=== PATIENT | male | born 1970 | race Caucasian/White ===

== ENCOUNTER → 2016-10-06 | Day surgery (SDC) | payer MEDICARE, OTHER ==
[~2016-10-06] MED LIST: ABILIFY5 MG PO; CONCERTA54 M1 PO; LITHIUM CARBON300 M1 PO; LOTREL 10-20 MG1 CAP PO; LOTREL 5/101 CAP PO; NEXIUM PO; PRISTIQ100 MG PO; SINGULAIR PO; STRIBILD TABLE1 EACH PO; TREXIMET 85-501 EACH; WELLBUTRIN XL150 M2 PO
--- NOTE | ~2016-10-06 | ECT ---
Unit #: [id number] #: [id number] Patient: JACE GRULLON [id number] [place] [address] [id number] O MR#: [id number] NAME: JACE GRULLON ROOM: Age: 45 Sex: M Admission Date: 10/06/2016 : 1970 Discharge Date: Attending Physician: Gallo Orozco M.D. Primary Care Physician: Alex Thomas M.D. ECT NOTE DATE OF TREATMENT 10/06/2016 TREATMENT NUMBER 1 TREATMENT MODALITY Unilateral ECT ANESTHESIA Glycopyrrolate: 0.2 mg Brevital: 150 mg Succinylcholine: 120 mg TREATMENT PARAMETERS Charge: 60 millicoulombs Pulse Width: 1.0 milliseconds Frequency: 30 Hertz Duration: 1.25 seconds Current: 800 milliamps TREATMENT DELIVERED Energy: 13.3 joules Impedance: 271 ohms Charge: 60 millicoulombs SEIZURE MEASURES OMS: 21 seconds EE seconds COMPLICATIONS None. SUMMARY The patient had a good seizure with his OMS and EEG measures. Depression seems to have returned and has been pretty severe for the last month. Psychomotor retardation, poor focus and concentration, loss of interest in activities, more social isolation, feeling of guilt. No suicidal or homicidal ideation is noted. I will continue his ECT treatments on Tuesday. DIFFERENTIAL DIAGNOSES AXIS I: F33.2. AXIS II: Deferred. AXIS III: Nothing acute. Unit #: [id number] #: [id number] Patient: JACE GRULLON Dictated by... Sera Magaña/kezia TD: 10/06/2016 22:32 JOB #: [id number] ECT NOTE X Gallo Orozco MD <ELECTRONICALLY SIGNED> 03/15/17 1702 X ECT
== END | disposition home or self-care (01) ==
LOC: CSUR 07:11
DX: F33.2 Major depressive disorder, recurrent severe without psychotic features (principal); K21.9 Gastro-esophageal reflux disease without esophagitis; I10 Essential (primary) hypertension; Z87.19 Personal history of other diseases of the digestive system; Z79.899 Other long term (current) drug therapy; Z86.69 Personal history of other diseases of the nervous system and sense organs
CPT/HCPCS: 90870; J0330; J1885

== ENCOUNTER → 2016-10-13 | Day surgery (SDC) | payer MEDICARE, OTHER ==
--- NOTE | ~2016-10-13 | ECT ---
Unit #: [id number] #: [id number] Patient: JACE GRULLON [id number] [address] [address] [id number] O MR#: [id number] NAME: JACE GRULLON ROOM: Age: 45 Sex: M Admission Date: 10/13/2016 : 1970 Discharge Date: Attending Physician: Gallo Orozco M.D. Primary Care Physician: Alex Thomas M.D. ECT NOTE DATE OF TREATMENT 10/13/2016 TREATMENT NUMBER Two. TREATMENT MODALITY Unilateral ECT. ANESTHESIA Glycopyrrolate: 0.2 mg. Brevital: 150 mg. Succinylcholine: 120 mg TREATMENT PARAMETERS Charge: 240 millicoulombs Pulse Width: 1.0 milliseconds Frequency: 30 Hertz Duration: 5 seconds Current: 800 milliamps TREATMENT DELIVERED Energy: 49.7 joules Impedance: 255 ohms Charge: 240 millicoulombs SEIZURE MEASURES OMS: 20 seconds EE seconds COMPLICATIONS None. SUMMARY The patient had a good seizure with OMS and EEG measures. No real change noted from his first ECT last week. He wants to wait and see how he does with this maintenance treatment today before we reschedule another ECT and we will just continue to follow as an outpatient. DIFFERENTIAL DIAGNOSES AXIS I: F33.2. AXIS II: Deferred. Unit #: [id number] #: [id number] Patient: JACE GRULLON AXIS III: Nothing acute. Dictated by... Gallo Orozco M.D. SAULO/pauline TD: 10/13/2016 12:12 JOB #: [id number] ECT NOTE Page 1 of 1 X Gallo Orozco MD <ELECTRONICALLY SIGNED> 03/15/17 1702 X ECT
== END | disposition home or self-care (01) ==
LOC: CSUR 06:37
DX: F33.2 Major depressive disorder, recurrent severe without psychotic features (principal); K21.9 Gastro-esophageal reflux disease without esophagitis; E66.9 Obesity, unspecified; Z68.30 Body mass index [BMI] 30.0-30.9, adult; I10 Essential (primary) hypertension; B20 Human immunodeficiency virus [HIV] disease; Z79.899 Other long term (current) drug therapy; J30.9 Allergic rhinitis, unspecified; Z98.890 Other specified postprocedural states
CPT/HCPCS: 90870; J0330; J1885

== ENCOUNTER → 2016-10-20 | Day surgery (SDC) | payer MEDICARE, OTHER ==
--- NOTE | ~2016-10-20 | ECT ---
Unit #: [id number] #: [id number] Patient: JACE GRULLON [id number] [address] [address] [id number] O MR#: [id number] NAME: JACE GRULLON ROOM: Age: 45 Sex: M Admission Date: 10/20/2016 : 1970 Discharge Date: Attending Physician: Gallo Orozco M.D. Referring Physician: Gallo Orozco M.D. Primary Care Physician: Alex Thomas M.D. ECT NOTE DATE OF TREATMENT 10/20/2016 TREATMENT NUMBER 3, maintenance TREATMENT MODALITY Unilateral ECT ANESTHESIA Glycopyrrolate: 0.2 mg Brevital: 150 mg Succinylcholine: 120 mg TREATMENT PARAMETERS Charge: 264 millicoulombs Pulse Width: 1.0 milliseconds Frequency: 30 Hertz Duration: 5.5 seconds Current: 800 milliamps TREATMENT DELIVERED Energy: 58.3 joules Impedance: 266 ohms Charge: 264 millicoulombs SEIZURES MEASURES OMS: 19 seconds EE seconds COMPLICATIONS None. SUMMARY The patient had a good seizure with his OMS and EEG measures. Depression has been fairly well stabilized with his maintenance ECTs every week but he does start having some return of symptoms before each ECT so I will keep him at once a week for awhile and will just continue to monitor. DIFFERENTIAL DIAGNOSES [place] I: F33.2. AXIS II: Deferred. AXIS III: Nothing acute. Unit #: [id number] #: [id number] Patient: JACE GRULLON Dictated by... Sera Magaña/kezia TD: 10/21/2016 16:57 JOB #: [id number] ECT NOTE Page 1 of 1 X Gallo Orozco MD <ELECTRONICALLY SIGNED> 03/15/17 1702 X ECT
== END | disposition home or self-care (01) ==
LOC: CSUR 06:39
DX: F33.2 Major depressive disorder, recurrent severe without psychotic features (principal); I10 Essential (primary) hypertension; E66.9 Obesity, unspecified; K21.9 Gastro-esophageal reflux disease without esophagitis; B20 Human immunodeficiency virus [HIV] disease; Z79.899 Other long term (current) drug therapy; Z98.890 Other specified postprocedural states
CPT/HCPCS: 90870; J0330; J1885

== ENCOUNTER → 2016-10-27 | Day surgery (SDC) | payer MEDICARE, OTHER ==
--- NOTE | ~2016-10-27 | ECT ---
Unit #: [id number] #: [id number] Patient: JACE GRULLON [id number] [address] [address] [id number] O MR#: [id number] NAME: JACE GRULLON ROOM: Age: 45 Sex: M Admission Date: 10/27/2016 : 1970 Discharge Date: Attending Physician: Gallo Orozco M.D. Primary Care Physician: Alex Thomas M.D. ECT NOTE DATE OF TREATMENT 10/27/2016 TREATMENT NUMBER 4, maintenance TREATMENT MODALITY Unilateral ECT ANESTHESIA Glycopyrrolate: 0.2 mg Brevital: 150 mg Succinylcholine: 120 mg TREATMENT PARAMETERS Charge: 352 millicoulombs Pulse Width: 1.0 milliseconds Frequency: 40 Hertz Duration: 5.5 seconds Current: 800 milliamps TREATMENT DELIVERED Energy: 72.7 joules Impedance: 251 ohms Charge: 352 millicoulombs SEIZURE MEASURES OMS: 12 seconds EE seconds COMPLICATIONS None. SUMMARY The patient had a good seizure with OMS and EEG measures. Depression has not really been all that stable and were not very well maintained with his maintenance ECTs every week but he has does want to push his ECT treatments out further, so we will bring him back in 2 weeks. However, between now and his next ECT, I will have him come to my office and will reevaluate his medication regimen and see if we can do anything to adjust there as well as check his lithium level. DIFFERENTIAL DIAGNOSES Unit #: [id number] #: [id number] Patient: JACE GRULLON AXIS I: F33.2. AXIS II: Deferred. AXIS III: Nothing acute. Dictated by... Gallo Orozco M.D. SAULO/kezia TD: 10/27/2016 20:04 JOB #: [id number] ECT NOTE Page 1 of 1 X Gallo Orozco MD <ELECTRONICALLY SIGNED> 02/21/17 1207 X ECT
== END | disposition home or self-care (01) ==
LOC: CSUR 06:10
DX: F33.2 Major depressive disorder, recurrent severe without psychotic features (principal); I10 Essential (primary) hypertension; J30.9 Allergic rhinitis, unspecified; K21.9 Gastro-esophageal reflux disease without esophagitis; Z79.899 Other long term (current) drug therapy; Z98.890 Other specified postprocedural states
CPT/HCPCS: 90870; J0330; J1885

== ENCOUNTER → 2016-11-10 | Day surgery (SDC) | payer MEDICARE, OTHER ==
--- NOTE | ~2016-11-10 | ECT ---
Unit #: [id number] #: [id number] Patient: JACE GRULLON [id number] [address] [address] [id number] O MR#: [id number] NAME: JACE GRULLON ROOM: Age: 45 Sex: M Admission Date: 11/10/2016 : 1970 Discharge Date: Attending Physician: Gallo Orozco M.D. Referring Physician: Gallo Orozco M.D. Primary Care Physician: Alex Thomas M.D. ECT NOTE DATE OF TREATMENT 11/10/2016 TREATMENT NUMBER 5, maintenance TREATMENT MODALITY Unilateral ECT. ANESTHESIA Glycopyrrolate: 0.2 mg. Brevital: 150 mg. Succinylcholine: 120 mg. TREATMENT PARAMETERS Charge: 440 millicoulombs Pulse Width: 1.0 milliseconds Frequency: 50 Hertz Duration: 5.5 seconds Current: 800 milliamps TREATMENT DELIVERED Energy: 102.8 joules Impedance: 281 ohms Charge: 440 millicoulombs SEIZURE MEASURES OMS: 17 seconds EE seconds COMPLICATIONS None. SUMMARY The patient had a good seizure with his OMS and EEG measures. Depression continues to be fairly persistent with his maintenance ECTs every 2 weeks. He has psychomotor retardation, poor focus and concentration. He continues to have some loss of interest in activities. I will tighten up his maintenance ECT schedule once a week and see if we can start that and get things little bit back on track. DIFFERENTIAL DIAGNOSIS AXIS I: F33.2 Unit #: [id number] #: [id number] Patient: JACE GRULLON AXIS II: Deferred. AXIS III: Nothing acute. Dictated by... Gallo Orozco M.D. SAULO/nicolle TD: 11/11/2016 06:53 JOB #: [id number] ECT NOTE Page 1 of 1 X Gallo Orozco MD <ELECTRONICALLY SIGNED> 02/21/17 1207 X ECT
== END | disposition home or self-care (01) ==
LOC: CSUR 06:39
DX: F33.2 Major depressive disorder, recurrent severe without psychotic features (principal)
CPT/HCPCS: 90870; J0330; J1885

== ENCOUNTER → 2016-11-17 | Day surgery (SDC) | payer MEDICARE, OTHER ==
--- NOTE | ~2016-11-17 | ECT ---
Unit #: [id number] #: [id number] Patient: JACE GRULLON [id number] [address] [address] [id number] O MR#: [id number] NAME: JACE GRULLON ROOM: Age: 45 Sex: M Admission Date: 11/17/2016 : 1970 Discharge Date: Attending Physician: Gallo Orozco M.D. Primary Care Physician: Alex Thomas M.D. ECT NOTE DATE OF TREATMENT 11/17/2016 TREATMENT NUMBER 6, maintenance. MODE Unilateral ECT. ANESTHESIA Glycopyrrolate: 0.2 mg Brevital: 150 mg Succinylcholine: 120 mg TREATMENT PARAMETERS Charge: 440 millicoulombs Pulse width: 1.0 msec Frequency: 50 Hz Duration: 5.5 seconds Current: 800 milliamps TREATMENT DELIVERED Energy: 98.9 joules Impedance: 275 ohms Charge: 440 millicoulombs SEIZURE MEASURES OMS: 25 seconds EE seconds COMPLICATIONS None SUMMARY The patient had a good seizure both OMS and EEG measures. Depression has not really been affected much by his maintenance ECTs being once a week, but he has not been getting any worse so we will continue his maintenance ECT next week. DIFFERENTIAL DIAGNOSIS AXIS I: F33.2 AXIS II: Deferred. AXIS III: Nothing acute. Unit #: [id number] #: [id number] Patient: JACE GRULLON Dictated by... Sera Magaña/alexy TD: 11/17/2016 10:12 JOB #: [id number] ECT NOTE Page 1 of 1 X Gallo Orozco MD <ELECTRONICALLY SIGNED> 02/21/17 1207 X ECT
== END | disposition home or self-care (01) ==
LOC: CSUR 07:37
DX: F33.2 Major depressive disorder, recurrent severe without psychotic features (principal); K21.9 Gastro-esophageal reflux disease without esophagitis; I10 Essential (primary) hypertension; G43.909 Migraine, unspecified, not intractable, without status migrainosus; B20 Human immunodeficiency virus [HIV] disease; J30.9 Allergic rhinitis, unspecified; Z79.899 Other long term (current) drug therapy; Z98.890 Other specified postprocedural states
CPT/HCPCS: 90870; J1885

== ENCOUNTER → 2016-11-24 | Day surgery (SDC) | payer MEDICARE, OTHER ==
--- NOTE | ~2016-11-24 | ECT ---
Unit #: [id number] #: [id number] Patient: JACE GRULLON [id number] [address] [address] [id number] O MR#: [id number] NAME: JACE GRULLON ROOM: Age: 46 Sex: M Admission Date: 11/24/2016 : 1970 Discharge Date: Attending Physician: Gallo Orozco M.D. Primary Care Physician: Alex Thomas M.D. ECT NOTE DATE OF TREATMENT 11/24/2016 TREATMENT NUMBER Seven (maintenance) TREATMENT MODALITY Unilateral ECT ANESTHESIA Glycopyrrolate: 0.2 mg Brevital: 150 mg Succinylcholine: 120 mg TREATMENT PARAMETERS Charge: 440 millicoulombs Pulse Width: 1.0 milliseconds Frequency: 50 Hertz Duration: 5.5 seconds Current: 800 milliamps TREATMENT DELIVERED Energy: 92.2 joules Impedance: 251 ohms Charge: 440 millicoulombs SEIZURE MEASURES OMS: 18 seconds EE seconds COMPLICATIONS None. SUMMARY The patient had a good seizure with OMS and EEG measures. Depression seems to be pretty good the day or two after his ECTs but by the third or fourth day, he begins to have depression again with psychomotor retardation, poor focus, and concentration, loss of interest in activities, poor appetite, social isolation, no suicidal or homicidal ideation is noted. I will continue his maintenance ECT on a slightly tighter schedule bringing him back on Tuesday and will do two treatments a week until we feel that we can get him back on his euthymic state. Unit #: [id number] #: [id number] Patient: JACE GRULLON DIFFERENTIAL DIAGNOSES [place] I: F33.2. AXIS II: Deferred. AXIS III: Nothing acute. AXIS IV: AXIS V: Dictated by... Gallo Orozco M.D. SAULO/felipe TD: 11/24/2016 09:14 JOB #: [id number] ECT NOTE Page 1 of 1 X Gallo Orozco MD <ELECTRONICALLY SIGNED> 02/21/17 1207 X ECT
== END | disposition home or self-care (01) ==
LOC: CSUR 06:25
DX: F33.2 Major depressive disorder, recurrent severe without psychotic features (principal); I10 Essential (primary) hypertension; K21.9 Gastro-esophageal reflux disease without esophagitis; Z79.899 Other long term (current) drug therapy; Z98.890 Other specified postprocedural states
CPT/HCPCS: 90870; J1885

== ENCOUNTER → 2016-11-29 | Day surgery (SDC) | payer MEDICARE, OTHER ==
--- NOTE | ~2016-11-29 | ECT ---
Unit #: [id number] #: [id number] Patient: JACE GRULLON [id number] [address] [address] [id number] O MR#: [id number] NAME: JACE GRULLON ROOM: Age: 46 Sex: M Admission Date: 11/29/2016 : 1970 Discharge Date: Attending Physician: Gallo Orozco M.D. Primary Care Physician: Alex Thomas M.D. ECT NOTE DATE OF TREATMENT 11/29/2016 TREATMENT NUMBER Eight TREATMENT MODALITY Unilateral ECT ANESTHESIA Glycopyrrolate: 0.2 mg Brevital: 150 mg Succinylcholine: 120 mg TREATMENT PARAMETERS Charge: 440 millicoulombs Pulse Width: 1.0 milliseconds Frequency: 50 Hertz Duration: 5.5 seconds Current: 800 milliamps TREATMENT DELIVERED Energy: 92.8 joules Impedance: 225 ohms Charge: 440 millicoulombs SEIZURE MEASURES OMS: 17 seconds EE seconds COMPLICATIONS None SUMMARY The patient had a good seizure with both OMS and EEG measures. Depression doesn't seem to be showing a lot of change with ECT just once a week so I am going to increase the frequency of his ECTs to at least twice a week. We may go to three times a week for the next couple of weeks and see if we can get him back on track. He is going to follow up with me in my office for outpatient medication management. DIFFERENTIAL DIAGNOSES AXIS I: F33.2. Unit #: [id number] #: [id number] Patient: JACE GRULLON AXIS II: Deferred. AXIS III: Nothing acute. AXIS IV: AXIS V: Dictated by... Gallo Orozco M.D. SAULO/felipe TD: 11/30/2016 05:37 JOB #: [id number] ECT NOTE Page 1 of 1 X Gallo Orozco MD <ELECTRONICALLY SIGNED> 02/21/17 1207 X ECT
== END | disposition home or self-care (01) ==
LOC: CSUR 06:50
DX: F33.2 Major depressive disorder, recurrent severe without psychotic features (principal); K21.9 Gastro-esophageal reflux disease without esophagitis; I10 Essential (primary) hypertension; J30.9 Allergic rhinitis, unspecified; Z79.899 Other long term (current) drug therapy; B20 Human immunodeficiency virus [HIV] disease; Z87.898 Personal history of other specified conditions
CPT/HCPCS: 90870; J0330; J1885

== ENCOUNTER → 2016-12-01 | Day surgery (SDC) | payer MEDICARE, OTHER ==
--- NOTE | ~2016-12-01 | ECT ---
Unit #: [id number] #: [id number] Patient: JACE GRULLON [id number] [address] [address] [id number] O MR#: [id number] NAME: JACE GRULLON ROOM: Age: 46 Sex: M Admission Date: 12/01/2016 : 1970 Discharge Date: Attending Physician: Gallo Orozco M.D. Primary Care Physician: Alex Thomas M.D. ECT NOTE DATE OF TREATMENT 12/01/2016 TREATMENT NUMBER Nine (maintenance) TREATMENT MODALITY Unilateral ECT ANESTHESIA Glycopyrrolate: 0.2 mg Brevital: 150 mg Succinylcholine: 120 mg TREATMENT PARAMETERS Charge: 576 millicoulombs Pulse Width: 1.0 milliseconds Frequency: 60 Hertz Duration: 6 seconds Current: 800 milliamps TREATMENT DELIVERED Energy: 119.7 joules Impedance: 247 ohms Charge: 576 millicoulombs SEIZURE MEASURES OMS: 27 seconds EE seconds COMPLICATIONS None. SUMMARY The patient had a good seizure with both OMS and EEG measures. His depression hasn't really shown any change from his maintenance ECT interval being increased but I will bring him back on Tuesday for another maintenance treatment and we will just press on until we see him get back into his baseline emotional status. DIFFERENTIAL DIAGNOSES [place] I: F33.2. AXIS II: Deferred. Unit #: [id number] #: [id number] Patient: JACE GRULLON AXIS III: Nothing acute. AXIS IV: AXIS V: Dictated by... Gallo Orozco M.D. SAULO/felipe TD: 12/01/2016 11:42 JOB #: [id number] ECT NOTE Page 1 of 1 X Gallo Orozco MD <ELECTRONICALLY SIGNED> 02/21/17 1207 X ECT
== END | disposition home or self-care (01) ==
LOC: CSUR 06:57
DX: F33.2 Major depressive disorder, recurrent severe without psychotic features (principal); K21.9 Gastro-esophageal reflux disease without esophagitis; J30.9 Allergic rhinitis, unspecified; I10 Essential (primary) hypertension; B20 Human immunodeficiency virus [HIV] disease; Z79.899 Other long term (current) drug therapy; G43.909 Migraine, unspecified, not intractable, without status migrainosus; Z98.890 Other specified postprocedural states
CPT/HCPCS: 90870; J0330; J1885

== ENCOUNTER → 2016-12-06 | Day surgery (SDC) | payer MEDICARE, OTHER ==
--- NOTE | ~2016-12-06 | ECT ---
Unit #: [id number] #: [id number] Patient: JACE GRULLON [id number] [address] [address] [id number] O MR#: [id number] NAME: JACE GRULLON ROOM: Age: 46 Sex: M Admission Date: 12/06/2016 : 1970 Discharge Date: Attending Physician: Gallo Orozco M.D. Primary Care Physician: Alex Thomas M.D. ECT NOTE DATE OF TREATMENT 12/06/2016 TREATMENT NUMBER 10 maintenance. TREATMENT MODALITY Unilateral ECT. ANESTHESIA Glycopyrrolate: 0.2 mg. Brevital: 150 mg. Succinylcholine: 120 mg. TREATMENT PARAMETERS Charge: 576 millicoulombs Pulse Width: 1.0 milliseconds Frequency: 60 Hertz Duration: 6 seconds Current: 800 milliamps TREATMENT DELIVERED Energy: 116.8 joules Impedance: 224 ohms Charge: 576 millicoulombs SEIZURE MEASURES OMS: 16 seconds EE seconds COMPLICATIONS None. SUMMARY The patient had good seizures both OMS and EEG measures. Depression is showing a little bit of improvement, increasing the frequency of his maintenance ECT to twice a week. I will bring him back on Tuesday and will just monitor and see if we can start to feather it back out after that. DIFFERENTIAL DIAGNOSES AXIS I: F33.2. Unit #: [id number] #: [id number] Patient: JACE GRULLON AXIS II: Deferred. AXIS III: Nothing acute. Dictated by... Gallo Orozco M.D. SAULO/pauline TD: 12/07/2016 09:58 JOB #: [id number] ECT NOTE Page 1 of 1 X Gallo Orozco MD <ELECTRONICALLY SIGNED> 02/21/17 1207 X ECT
== END | disposition home or self-care (01) ==
LOC: CSUR 06:32
DX: F33.2 Major depressive disorder, recurrent severe without psychotic features (principal); G43.909 Migraine, unspecified, not intractable, without status migrainosus; B20 Human immunodeficiency virus [HIV] disease; K21.9 Gastro-esophageal reflux disease without esophagitis; J30.9 Allergic rhinitis, unspecified; I10 Essential (primary) hypertension; Z79.899 Other long term (current) drug therapy; Z98.890 Other specified postprocedural states
CPT/HCPCS: 90870; J0330; J1885

== ENCOUNTER → 2016-12-13 | Day surgery (SDC) | payer MEDICARE, OTHER ==
--- NOTE | ~2016-12-13 | ECT ---
Unit #: [id number] #: [id number] Patient: JACE GRULLON [id number] [address] [address] [id number] O MR#: [id number] NAME: JACE GRULLON ROOM: Age: 46 Sex: M Admission Date: 12/13/2016 : 1970 Discharge Date: Attending Physician: Gallo Orozco M.D. Primary Care Physician: Alex Thomas M.D. ECT NOTE DATE OF TREATMENT 12/13/2016 TREATMENT NUMBER 11 Maintenance TREATMENT MODALITY Unilateral ECT ANESTHESIA Glycopyrrolate: 0.2 mg Brevital: 100 mg Succinylcholine: 100 mg TREATMENT PARAMETERS Charge: 576 millicoulombs Pulse Width: 1.0 milliseconds Frequency: 60 Hertz Duration: 6 seconds Current: 800 milliamps TREATMENT DELIVERED Energy: 124.4 joules Impedance: 262 ohms Charge: 576 millicoulombs SEIZURE MEASURES OMS: 27 seconds EE seconds COMPLICATIONS None. SUMMARY The patient seems to be doing pretty well with his maintenance ECTs now increased to every other day. We will bring him back on Tuesday and hopefully we will be able to wrap up his maintenance treatments here pretty soon. DIFFERENTIAL DIAGNOSIS [place] I: F33.2. [place] II: Deferred. [place] III: Nothing acute. Unit #: [id number] #: [id number] Patient: JACE GRULLON Dictated by... Sera Magaña/eduardo TD: 12/14/2016 04:09 JOB #: [id number] ECT NOTE Page 1 of 1 X Gallo Orozco MD <ELECTRONICALLY SIGNED> 02/21/17 1207 X ECT
== END | disposition home or self-care (01) ==
LOC: CSUR 07:39
DX: F33.2 Major depressive disorder, recurrent severe without psychotic features (principal); K21.9 Gastro-esophageal reflux disease without esophagitis; I10 Essential (primary) hypertension; Z79.899 Other long term (current) drug therapy; B20 Human immunodeficiency virus [HIV] disease; J30.9 Allergic rhinitis, unspecified
CPT/HCPCS: 90870; J1885

== ENCOUNTER → 2016-12-15 | Day surgery (SDC) | payer MEDICARE, OTHER ==
--- NOTE | ~2016-12-15 | ECT ---
Unit #: [id number] #: [id number] Patient: JACE GRULLON [id number] [address] [address] [id number] O MR#: [id number] NAME: JACE GRULLON ROOM: Age: 46 Sex: M Admission Date: 12/15/2016 : 1970 Discharge Date: Attending Physician: Gallo Orozco M.D. Primary Care Physician: Alex Thomas M.D. ECT NOTE DATE OF TREATMENT 12/15/2016 TREATMENT NUMBER 22, maintenance MODE Unilateral ECT. ANESTHESIA Glycopyrrolate: 0.2 mg. Brevital: 150 mg. Succinylcholine: 100 mg. TREATMENT PARAMETERS Charge: 576 millicoulombs Pulse Width: 1.0 milliseconds Frequency: 60 Hertz Duration: 6 seconds Current: 800 milliamps TREATMENT DELIVERED Energy: 122.7 joules Impedance: 257 ohms Charge: 576 millicoulombs SEIZURE MEASURES OMS: 13 seconds EE seconds COMPLICATIONS None. SUMMARY The patient had a good seizure with both OMS and EEG measures. Depression seems to be in pretty good control at this point, having increased frequency of his ECTs over the last couple of weeks. I will now feather his ECT treatments out to a week and will see how he does over the next week. DIFFERENTIAL DIAGNOSES [place] I: F33.2 AXIS II: Deferred. Unit #: [id number] #: [id number] Patient: JACE GRULLON AXIS III: Nothing acute. Dictated by... Sera Magaña/nicolle TD: 12/16/2016 10:58 JOB #: [id number] ECT NOTE Page 1 of 1 X Gallo Orozco MD <ELECTRONICALLY SIGNED> 02/21/17 1207 X ECT
== END | disposition home or self-care (01) ==
LOC: CSUR 07:06
DX: F33.2 Major depressive disorder, recurrent severe without psychotic features (principal); K21.9 Gastro-esophageal reflux disease without esophagitis; I10 Essential (primary) hypertension; Z79.899 Other long term (current) drug therapy
CPT/HCPCS: 90870; J0330